=== PATIENT | female | born 1985 | race American Indian/Alaskan Native ===

== ENCOUNTER 2017-02-11 23:18 | Emergency (ER) | payer SELFPAY ==
[2017-02-12 00:38] VITALS: BP 117/81
[2017-02-12] MEDS ORDERED: NACL 0.9% 500 ML IR ONE (00:58)
[2017-02-12] MEDS ORDERED: NACL 0.9% IR ONE (01:28)
--- NOTE | 2017-02-12 02:17 | Emergency Department Report ---
ED Laceration HPI - HPI Chief Complaint: Laceration/Recheck/Suture Stated Complaint: ARM LAC Time Seen by Provider: 02/12/17 02:13 Location: Upper Extremity (22-year-old female presents with dog bite) Severity: moderate Tetanus Status: Not up to Date Laceration Symptoms: Yes Pain, No Foreign Body Sensation, No Numbness, No Weakness Other History: Patient is a 31-year-old female presents for laceration sustained to the right arm. Patient states around 2 PM yesterday she punched through the window of a [employer] laceration in the process. Patient states minimal bleeding that is now controlled. Patient also states that her boyfriend told her that he is positive for STD. She says she has no symptoms at a moment but will be treated. ED Review of Systems ROS: Stated complaint: ARM LAC Other details as noted in HPI Constitutional: denies: chills, fever Eyes: denies: eye pain, eye discharge, vision change ENT: denies: ear pain, throat pain Respiratory: denies: cough, shortness of breath, wheezing Cardiovascular: denies: chest pain, palpitations Endocrine: no symptoms reported Gastrointestinal: denies: abdominal pain, nausea, diarrhea Genitourinary: denies: urgency, dysuria, discharge Musculoskeletal: denies: back pain, joint swelling, arthralgia Skin: denies: rash, lesions Neurological: denies: headache, weakness, paresthesias Psychiatric: denies: anxiety, depression Hematological/Lymphatic: denies: easy bleeding, easy bruising ED Past Medical Hx - Past Medical History Previous Medical History?: No - Surgical History Past Surgical History?: Yes Additional Surgical History: tonsilectomy - Social History Smoking Status: Never Smoker Substance Use Type: Alcohol - Medications Home Medications: Home Medications Medication Instructions Recorded Confirmed Last Taken Type Amoxicillin/K Clav Tab [Augmentin 1 tab PO Q12HR #12 tab 02/12/17 Unknown Rx 875 mg] valACYclovir [Valtrex] 500 mg PO BID #14 tab 02/12/17 Unknown Rx Laceration Physical Exam - Exam General: Vital signs noted. No distress. Alert and acting appropriately. Wound Length (cm): 1 Laceration Location: Upper Extremity Laceration Exam: No Foreign Body, No Exposed Tendon, Vessel, or Nerve, No Tendon Injury, No Normal Distal CMS ED Course Vital Signs 02/12/17 00:29 Temperature 97.4 F L Pulse Rate 77 Respiratory 16 Rate Blood Pressure 117/81 O2 Sat by Pulse 100 Oximetry - Laceration /Wound Repair Right Upper Posterior Proximal Arm Wound Location: upper extremity Irrigated w/ Saline (ccs): 4 Betadine Prep?: Yes Anesthesia: 1% Lidocaine Volume Anesthetic (ccs): 5 Wound Repaired With: sutures, Steri-strips Suture Size/Type: 3:0 Number of Sutures: 4 Layer Closure?: No Sterile Dressing Applied?: Yes Progress: There were 2 sets of lacerations first was 4-6 cm while the other was about 3 cm see mdm note ED Medical Decision Making - Medical Decision Making 31-year-old female presents with laceration to the arm ED course:The 5cm laceration wound was prepped and draped in sterile fashion. Anesthesia was achieved with 4mL of 1% lidocaine. The wound was irrigated with 200cc NS and explored. There were no foreign bodies The wound was reapproximated in 1 layer with 6 sutures and the other 4 cm laceration with 6 sutures suing with 4-0 vicryl absorbable sutures in the dermis with interrupted sutures percutaneously. There was excellent reapproximation of the wound edges. The patient tolerated the procedure without complication Patient states her boyfriend called her yesterday and told her that he was positive for STDs so she will be treated. She is to see she has a history of herpes and is out of her Valtrex refill Discussed the patient would not need to return for Critical care attestation.: If time is entered above; I have spent that time in minutes in the direct care of this critically ill patient, excluding procedure time. ED Disposition Clinical Impression: Laceration, Exposure to STD, Hx of herpes genitalis Disposition: DC- TO HOME OR SELFCARE Is pt being admited?: No Does the pt Need Aspirin: No Condition: Stable Instructions: Suture Care (ED), Laceration (ED), Absorbable Suture Care (ED) Additional Instructions: Follow-up with the primary care physician. Follow-up with the health department for further STD testing Prescriptions: Amoxicillin/K Clav Tab [Augmentin 875 mg] 1 tab PO Q12HR #12 tab valACYclovir [Valtrex] 500 mg PO BID #14 tab Referrals: CARLOS AYERS MD [Primary Care Provider] - 3-5 Days DAVID CASTRO MD [Referring] - 3-5 Days [facility] [Outside] - [facility] - [facility]5 Days Forms: Work/School Release Form(ED)
[2017-02-12] MEDS ORDERED: XYLOCAINE 1% MPF 5 mL INFILTRATI ONE ×2 (02:47→03:07)
[2017-02-12] MEDS ORDERED: XYLOCAINE 1% MPF 5 mL ONE (02:49)
[2017-02-12] MEDS ORDERED: ROCEPHIN IM ONE (03:07)
[2017-02-12] MEDS ORDERED: ZITHROMAX PO ONE (03:07)
[2017-02-12] MEDS ORDERED: BOOSTRIX IM ONE (03:10)
[2017-02-12 04:07] LABS: Bilirubin,Urine NEG (Negative); Blood,Urine NEG (Negative); Ketones,Urine NEG (Negative); Leukocyte Esterase,Urine NEG (Negative); Nitrite,Urine NEG (Negative); Protein,Urine <15 mg/dL mg/dL (Negative); Urobilinogen,Urine < 2.0 mg/dL (<2.0); WBC,Urine < 1.0 /HPF (0.0-6.0)
== END 2017-02-12 04:30 | disposition home or self-care (01) ==
LOC: ED 23:18
DX: S41.111A Laceration without foreign body of right upper arm, initial encounter (principal); Z20.2 Contact with and (suspected) exposure to infections with a predominantly sexual mode of transmission; W45.8XXA Other foreign body or object entering through skin, initial encounter; Y93.9 Activity, unspecified; Y92.89 Other specified places as the place of occurrence of the external cause; Y99.9 Unspecified external cause status
CPT/HCPCS: 12001; 81001; 81025; 87076; 87086; 87186; 90471; 90715; 96372; 99283; J0696